=== PATIENT | female | born 1995 | race Hispanic/Latino ===

== ENCOUNTER → 2021-10-09 | Outpatient (CLI) | payer MEDICAID, OTHER ==
[~2021-10-09] MED LIST: METR500T PO
== END | disposition home or self-care (01) ==
LOC: ICE 10-08 12:57
PROVIDERS: ATTEND Internal Medicine Cardiovascular Disease
DX: Z20.822 Contact with and (suspected) exposure to COVID-19 (principal)
CPT/HCPCS: 87635; C9803